=== PATIENT | female | born 1995 | race Caucasian/White ===

== ENCOUNTER 2020-03-21 07:35 | Inpatient (IN) | payer OTHER ==
[2020-03-21] MEDS ORDERED: DEXTROSE 5%-LACTATED RINGERS 1,000 ML IV SCH (08:30)
[2020-03-21 09:20] LABS: BASO % 0.5 % (0-2.0); EOS % 0.1 % (0-4.5); HEMATOCRIT 35.6 % (32.4-45.2); HEMOGLOBIN 11.5 GM/dL (10.7-15.3); LYMPH % 10.3 % (8-40); MCH 27.5 pg (25.7-33.7); MCHC 32.4 g/dl (32.0-36.0); MEAN CELL VOLUME 85.1 fl (80-96); MEAN PLT VOLUME 9.5 fl (7.5-11.1); MONO % 4.9 % (3.8-10.2); NEUT % 84.2 % (42.8-82.8); PLATELET COUNT 288 K/MM3 (134-434); RBC 4.18 M/mm3 (3.60-5.2); WHITE BLOOD COUNT 13.5 K/mm3 (4.0-10.0)
[2020-03-21 09:24] LABS: INR 0.88 (0.83-1.09); PROTHROMBIN TIME (PATIENT) 10.9 SEC (9.7-13.0)
[2020-03-21 09:27] LABS: ACTIVATED PTT 26.3 SECONDS (25.2-36.5)
[2020-03-21 09:32] LABS: POTASSIUM 3.9 mmol/L (3.5-5.1)
[2020-03-21 09:33] LABS: CALCIUM 8.6 mg/dL (8.5-10.1)
[2020-03-21 09:34] LABS: BLOOD UREA NITROGEN 7.4 mg/dL (7-18)
[2020-03-21 09:35] VITALS: BMI 33.5
[2020-03-21 09:37] LABS: CREATININE 0.5 mg/dL (0.55-1.3)
[2020-03-21] MEDS ORDERED: OXYTOCIN 30 UNITS in 0.9% NS 30 UNIT/500 ML INFUS.BAG IVPB ONE (10:37)
[2020-03-21] MEDS ORDERED: BUTORPHANOL TARTRATE 2 MG/ML VIAL ONE (10:37)
[2020-03-21] MEDS ORDERED: PROMETHAZINE HCL 25 MG/1 ML VIAL ONE (10:37)
[2020-03-21] MEDS ORDERED: PROMETHAZINE HCL 25 MG/1 ML VIAL IVPUSH ONE (10:38)
[2020-03-21] MEDS ORDERED: BUTORPHANOL TARTRATE 1 MG/ML VIAL IVPB ONE (10:38)
[2020-03-21] MEDS ORDERED: OXYTOCIN 30 UNITS in 0.9% NS 30 UNIT/500 ML INFUS.BAG IVPB SCH (10:45)
[2020-03-21] MEDS ORDERED: OXYTOCIN 20 UNITS in 0.9% NS 20 UNIT/1,000 ML INFUS.BAG IV ONE (13:04)
[2020-03-21] MEDS ORDERED: LIDOCAINE HCL 1% PRESERVATIVE FREE - 30ML VIAL ONE (13:04)
[2020-03-21] MEDS: IBUPROFEN 600 MG TABLET (FP) PO PRN (14:45)
[2020-03-21] MEDS ORDERED: IBUPROFEN 600 MG TABLET (FP) PO ONE (15:45)
[2020-03-21] MEDS: ACETAMINOPHEN 325 MG TABLET (FP) PO PRN (15:45)
[2020-03-21] MEDS ORDERED: ACETAMINOPHEN 325 MG TABLET (FP) ONE (15:45)
[2020-03-21 15:47] LABS: CORD HCO3 22.5 mmHg (20-29); CORD PCO2 65.7 mmHg (30-78); CORD pH 7.152 (7.14-7.44)
[2020-03-21 15:50] LABS: CORD BASE EXCESS -9.2 mmol/L (0-2); CORD HCO3 18.4 mmHg (20-29); CORD PCO2 46.3 mmHg (30-78); CORD pH 7.217 (7.14-7.44)
[2020-03-21] MEDS ORDERED: WITCH HAZEL 50% (TUCKS) 40 PAD/JAR PAD TP PRN (15:53)
[2020-03-21] MEDS ORDERED: BENZOCAINE 28 GM HEMORRHOIDAL OINTMENT TP PRN (15:53)
[2020-03-21] MEDS ORDERED: BENZOCAINE 20% 57 GM BOTTLE TP PRN (15:53)
[2020-03-21] MEDS ORDERED: BISACODYL 10 MG SUPP.RECT RC PRN (15:53)
[2020-03-21] MEDS ORDERED: METHYLERGONOVINE MALEATE 0.2 MG/1 ML AMP IM PRN (15:53)
[2020-03-21] MEDS ORDERED: OXYTOCIN 20 UNITS in 0.9% NS 20 UNIT/1,000 ML INFUS.BAG IV SCH (16:00)
[2020-03-21] MEDS: FERROUS SO4 325 MG TABLET (FP) PO SCH (18:30)
[2020-03-22] MEDS: ACETAMINOPHEN 325 MG TABLET (FP) PO PRN (06:42)
[2020-03-22] MEDS: IBUPROFEN 600 MG TABLET (FP) PO PRN (06:42)
[2020-03-22 08:44] LABS: BASO % 0.2 % (0-2.0); EOS % 0.3 % (0-4.5); HEMATOCRIT 25.9 % (32.4-45.2); HEMOGLOBIN 8.2 GM/dL (10.7-15.3); LYMPH % 15.4 % (8-40); MCHC 31.6 g/dl (32.0-36.0); MEAN CELL VOLUME 85.6 fl (80-96); MEAN PLT VOLUME 9.2 fl (7.5-11.1); NEUT % 77.1 % (42.8-82.8); PLATELET COUNT 228 K/MM3 (134-434); RBC 3.02 M/mm3 (3.60-5.2); RDW 17.2 % (11.6-15.6); WHITE BLOOD COUNT 13.6 K/mm3 (4.0-10.0)
[2020-03-22] MEDS: PRENATAL VITAMINS W/ FOLIC ACID TABLET (FP) PO SCH (09:03)
[2020-03-22] MEDS: FERROUS SO4 325 MG TABLET (FP) PO SCH ×2 (09:03→18:36)
[2020-03-22] MEDS ORDERED: SENNOSIDES/DOCUSATE COMBO (SENNA PLUS) TABLET (UD) PO PRN (22:00)
[2020-03-23] MEDS: IBUPROFEN 600 MG TABLET (FP) PO PRN (05:38)
[2020-03-23] MEDS: ACETAMINOPHEN 325 MG TABLET (FP) PO PRN (05:38)
[2020-03-23 08:28] VITALS: BP 121/65; PULSE 84; TEMP 98.3
[2020-03-23] MEDS: FERROUS SO4 325 MG TABLET (FP) PO SCH (09:21)
[2020-03-23] MEDS: PRENATAL VITAMINS W/ FOLIC ACID TABLET (FP) PO SCH (09:21)
== END 2020-03-23 12:35 | disposition home or self-care (01) | DRG 560 ==
LOC: JDEL 07:35 → JLDR 08:00 → J3W 17:45
PROVIDERS: ADMIT Obstetrics & Gynecology; ATTEND Obstetrics & Gynecology
PROC: 10E0XZZ Delivery of Products of Conception, External Approach (ICD-10-PCS; principal; 2020-03-21)
PROC: 0W8NXZZ Division of Female Perineum, External Approach (ICD-10-PCS; 2020-03-21)
DX: O48.0 Post-term pregnancy (principal); O69.1XX0 Labor and delivery complicated by cord around neck, with compression, not applicable or unspecified; Z3A.41 41 weeks gestation of pregnancy; Z37.0 Single live birth
CPT/HCPCS: 36415; 36600; 59409; 80048; 82803; 85025; 85610; 85730; 86780; 86850; 86900; 86901; C9803; U0003

== ENCOUNTER 2021-06-18 08:46 | Emergency (ER) | payer OTHER ==
[2021-06-18 08:53] VITALS: BP 123/66; PULSE 94; TEMP 98.7; BMI 29.9
== END 2021-06-18 11:10 | disposition home or self-care (01) ==
LOC: JERFT 08:46
DX: L52 Erythema nodosum (principal)
CPT/HCPCS: 99281-25

== ENCOUNTER 2022-05-28 15:15 | Emergency (ER) | payer OTHER ==
[2022-05-28 15:27] VITALS: BP 127/65; PULSE 99; RESP 18; TEMP 98.1; BMI 28.3
[2022-05-28] MEDS ORDERED: valACYclovir HCL 1000 MG TABLET PO ONE (17:36)
[2022-05-28] MEDS ORDERED: DOXYCYCLINE HYCLATE 100 MG CAPSULE PO ONE ×2 (17:36→17:50)
[2022-05-28] MEDS ORDERED: valACYclovir HCL 500 MG TABLET (FP) ONE (17:51)
[2022-05-28 18:31] LABS: EPI CELLS 1 /uL (0-25.1); HYALINE CASTS 0 /uL (0-3.1); PH,URINE 5.5 (5.0-8.0); URINE APPEARANCE CLEAR; URINE BACTERIA 12 /uL (0-1359); URINE BILIRUBIN NEGATIVE (NEGATIVE); URINE COLOR YELLOW; URINE GLUCOSE (UA) NEGATIVE (NEGATIVE); URINE KETONE 3+ (NEGATIVE); URINE LEUK ESTERASE TRACE (NEGATIVE); URINE NITRITE NEGATIVE (NEGATIVE); URINE PROTEIN NEGATIVE (NEGATIVE); URINE RBC 1 /uL (0-23.9); URINE UROBILINOGEN 0.2 mg/dL (0.2-1.0); URINE WBC 0 /uL (0-25.8)
[2022-05-28 19:51] LABS: HIV INTERPRETATION NEGATIVE (NEGATIVE)
== END 2022-05-28 19:37 | disposition home or self-care (01) ==
LOC: JER 15:15 → JERFT 15:15
PROC: 3E023GC Introduction of Other Therapeutic Substance into Muscle, Percutaneous Approach (ICD-10-PCS; principal; 2022-05-28)
DX: A64 Unspecified sexually transmitted disease (principal)
CPT/HCPCS: 36415; 81003; 84703; 86705; 86780; 87081; 87086; 87340; 87389; 87491; 87517; 87591; 99284-25